=== PATIENT | female | born 1990 | race Hispanic/Latino ===

== ENCOUNTER 2018-03-02 16:32 | Inpatient (IN) | payer OTHER ==
[~2018-03-02] VITALS: Ht 152.4 cm; Wt 98.0 kg
[~2018-03-02 16:32] MED LIST: CRYSELLE 30 MCG1 TAB PO; LEVSIN0.125 MG PO; ZOFRAN ODT4 M1 PO; ZOFRAN4 MG PO
[2018-03-02 17:44] LABS: ABSOLUTE BASOPHIL COUNT 0 /CUMM (0.0-0.2); ABSOLUTE EOSINOPHIL COUNT 0 /CUMM (0.0-0.7); ABSOLUTE LYMPH COUNT 2.1 /CUMM (1.2-3.4); BASOPHIL % 0.3 % (0.0-2.0); EOSINOPHIL % 0.1 % (0-5); GRANULOCYTE % 74.3 % (42.2-75.2); HEMATOCRIT 37.1 % (37-47); MEAN CORPUSCULAR HGB 27.1 PG (27.0-31.0); MEAN CORPUSCULAR HGB CONC 33.7 G/DL (33.0-37.0); MEAN CORPUSCULAR VOLUME 80.4 FL (81.0-99.0); MEAN PLATELET VOLUME 10.1 FL (7.4-10.4); PLATELET COUNT 207 /CUMM (130-400); RBC DISTRIBUTION WIDTH 15.4 % (11.5-14.5); RED BLOOD CELL CT 4.61 /CUMM (4.20-5.40); WHITE BLOOD CELL COUNT 12.1 /CUMM (4.8-10.8)
--- NOTE | 2018-03-02 23:31 | Operative Report ---
Operative/Inv Procedure Report Surgery Date: 03/02/18 Name of Procedure: Primary section Pre-Operative Diagnosis: Nonreassuring heart rate testing Post-Operative Diagnosis: Same Estimated Blood Loss: 800 mL Surgeon/Pumping Station Supervisor: Morro Haley MD,Shalom Nicholas M.D. Anesthesia: epidural Operative/Procedure Note Note: The patient was taken to the operating room and placed on the OR table in the supine position. Her epidural anesthesia was reinforced and tested. The abdomen was prepped and draped in the usual sterile fashion. Venodyne boots were placed. A Dior catheter was previously placed and was draining clear urine. A Pfannenstiel skin incision was made with the scalpel and this was taken down to the layer of the fascia. The fascia was nicked in the midline and extended bilaterally. The underlying rectus muscles were and the peritoneal cavity was entered sharply. A bladder flap was created using Metzenbaum scissors. A Steven bladder blade was inserted to protect the bladder from the operation field. A low transverse uterine incision was made with the scalpel and the uterine cavity was entered. A liveborn female was delivered atraumatically and handed off to the awaiting epitaxial reactor operator. He was then manually removed intact with a three-vessel cord. The uterus was exteriorized and wiped clean with a wet lap sponge. The uterine incision was then closed in 2 layers of 0 Polysorb suture, the second one imbricating the first one. The abdomen and pelvis were copiously irrigated and the uterus was placed back into the abdominal cavity. The suture line was once again visualized and noted to be hemostatic. The rectus muscles were reapproximated with 2 sutures of 0 Polysorb. The fascia was then closed using 0 Maxon in a running nonlocking fashion. Subcutaneous tissues were irrigated and coagulated electric cautery where needed. Subcutaneous tissues were closed using 0 Polysorb in a running fashion. Skin was closed with fernando and a dry sterile dressing was applied to the wound. The patient was then transferred to recovery in good condition. All needle, sponge, and instrument counts were correct at the end of the procedure 4 counts.
[2018-03-03 08:45] LABS: ABSOLUTE EOSINOPHIL COUNT 0 /CUMM (0.0-0.7); ABSOLUTE MONOCYTE COUNT 0.9 /CUMM (0.10-0.60); EOSINOPHIL % 0.1 % (0-5); MEAN PLATELET VOLUME 10.3 FL (7.4-10.4)
[2018-03-03 08:54] LABS: ABSOLUTE BASOPHIL COUNT 0 /CUMM (0.0-0.2); ABSOLUTE GRANULOCYTE CT 8.8 /CUMM (1.4-6.5); BASOPHIL % 0.3 % (0.0-2.0); HEMATOCRIT 32.2 % (37-47); MEAN CORPUSCULAR HGB 27.5 PG (27.0-31.0); MEAN CORPUSCULAR HGB CONC 33.6 G/DL (33.0-37.0); MEAN CORPUSCULAR VOLUME 81.8 FL (81.0-99.0); PLATELET COUNT 172 /CUMM (130-400); RBC DISTRIBUTION WIDTH 15.7 % (11.5-14.5); RED BLOOD CELL CT 3.93 /CUMM (4.20-5.40); WHITE BLOOD CELL COUNT 11.7 /CUMM (4.8-10.8)
--- NOTE | 2018-03-03 12:00 | History & Physical Pre-Op ---
General Information and HPI History of Present Illness: This patient is a 27-year-old 1 para 0 EDC 424 2018 x 8 week ultrasound presents to labor and delivery complaining of rupture of membranes at 3:30 PM Sunday. Fluid was green tinged and confirmation of meconium with spontaneous rupture of membranes in labor and delivery. Care is complete and significant for gestational diabetes for which she has been co-managed and on metformin 500 mg daily. Hemoglobin A1c is 5.8. She has been in labor now for approximately 4 hours with occasional variable decelerations and one final episode of distress leading to primary . Allergies/Medications Allergies: Coded Allergies: NO KNOWN ALLERGIES (03/07/12) Home Med list Ethinyl Estradiol/Norgestrel (Cryselle 30 Mcg-0.3 MG) 1 TAB TAB 1 TAB PO DAILY BC (Reported) Hyoscyamine Sulfate (Levsin) 0.125 MG TAB 1-2 TAB PO Q6P PRN ABDOMINAL CRAMPS Ondansetron (Zofran Odt) 4 MG TAB.RAPDIS 1 TAB PO Q6 PRN NAUSEA Ondansetron Hydrochloride (Zofran) 4 MG TAB 1 TAB PO Q6P PRN NAUSEA/VOMITING Past History Medical History Neurological: NONE EENT: NONE Cardiovascular: NONE Respiratory: NONE Gastrointestinal: NONE Hepatic: NONE Renal: NONE Musculoskeletal: NONE Psychiatric: NONE Endocrine: NONE Blood Disorders: NONE Cancer(s): NONE JAVA TECH LEAD/Reproductive: NONE Surgical History Pertinent Surgical History: cholecystectomy Past Family/Social History Psychosocial History Smoking Status: Never Smoked Review of Systems Review of Systems Constitutional: Reports: no symptoms. EENTM: Reports: no symptoms. Cardiovascular: Reports: no symptoms. Respiratory: Reports: no symptoms. GI: Reports: no symptoms. Genitourinary: Reports: no symptoms. Musculoskeletal: Reports: no symptoms. Skin: Reports: no symptoms. Neurological/Psychological: Reports: no symptoms. Hematologic/Endocrine: Reports: no symptoms. Immunologic/Allergic: Reports: no symptoms. All Other Systems: Reviewed and Negative Exam & Diagnostic Data Last 24 Hrs of Vital Signs/I&O Intake & Output 03/03 1600 03/03 0800 03/03 0000 Intake Total Output Total Balance Patient 216 lb Weight Physical Exam: HEENT: Normocephalic atraumatic Chest: Clear to auscultation bilaterally Cardiovascular: Normal S1-S2 Abdomen: Gravid estimated weight 7-1/2 pounds Pelvic: 2 cm 50% effaced -2 Extremities: No clubbing cyanosis or edema neurologic: Nonfocal Last 24 Hrs of Labs/Martin: Laboratory Tests 03/03/18 0650: CBC w Diff NO MAN DIFF REQ, RBC 3.93 L, MCV 81.8, MCH 27.5, MCHC 33.6, RDW 15.7 H, MPV 10.3, Gran % 75.0, Lymphocytes % 17.0 L, Monocytes % 7.6, Eosinophils % 0.1, Basophils % 0.3, Absolute Granulocytes 8.8 H, Absolute Lymphocytes 2.0, Absolute Monocytes 0.9 H, Absolute Eosinophils 0, Absolute Basophils 0 03/02/182014: Urinalysis LIGHT H, Urine Color YEL, Urine Clarity CLEAR, Urine pH 6.0, Ur Specific [place] 1.025, Urine Protein TRACE H, Urine Ketones NEG, Urine Nitrite NEG, Urine Bilirubin NEG, Urine Urobilinogen 0.2, Ur Leukocyte Esterase NEG, Ur Microscopic SEDIMENT EXAMINED, Urine Hemoglobin NEG, Urine Glucose NEG 03/02/18 1845: Hemoglobin A1c 5.8 03/02/18 1730: CBC w Diff NO MAN DIFF REQ, RBC 4.61, MCV 80.4 L, MCH 27.1, MCHC 33.7, RDW 15.4 H, MPV 10.1, Gran % 74.3, Lymphocytes % 17.2 L, Monocytes % 8.1, Eosinophils % 0.1, Basophils % 0.3, Absolute Granulocytes 9.0 H, Absolute Lymphocytes 2.1, Absolute Monocytes 1.0 H, Absolute Eosinophils 0, Absolute Basophils 0 03/02/18 1645: Membrane Rupture POSITIVE Microbiology 03/02 2015 URINE ROUT: Urine Culture - RES Assessment/Plan Assessment/Plan: Spontaneous rupture of membranes with meconium at 38 weeks 4 days now with distress Plan: Primary section As Ranked By This Provider Problem List: 1.
--- NOTE | 2018-03-04 17:43 | PN- Obstetrical ---
Subjective Subjective: no c/o Review of Systems: neg Objective Last 24 Hrs of Vital Signs/I&O vss Physical Exam: incision c/d/i ext NT Obstetric Exam Dilation (cm): 0 Effacement (%): 0 Station: 0 Membranes: SROM Fluid: thick meconium Multiple Gestation? No Contractions: ne Assessment/Plan Assessment/Plan s/p c/s pod2 stable discharge tomorrow Problem List: 1.
--- NOTE | 2018-03-04 17:45 | PN- Post Delivery/GYN ---
Subjective Subjective: no c/o Review of Systems: neg Objective Last 24 Hrs of Vital Signs/I&O vss afebrile Physical Exam: incision c/d/i ext nt Assessment/Plan Assessment/Plan s/p c/.s pod2 stable discharge tomorrow
[2018-03-04] MEDS ORDERED: IBUPROFEN800 M1 PO (17:47)
[2018-03-04] MEDS ORDERED: DOCUSATE SODIU100 M3 PO (17:47)
[2018-03-04] MEDS ORDERED: PERCOCET 5-3251 EACH PO (17:47)
== END 2018-03-05 11:24 | DRG 540 ==
LOC: CBCO 16:32 → GNO 17:15
PROVIDERS: Obstetrics & Gynecology
PROC: 10D00Z1 Extraction of Products of Conception, Low, Open Approach (ICD-10-PCS; principal; 2018-03-02)
DX: O76 Abnormality in fetal heart rate and rhythm complicating labor and delivery (principal); O24.425 Gestational diabetes mellitus in childbirth, controlled by oral hypoglycemic drugs; O77.0 Labor and delivery complicated by meconium in amniotic fluid; Z3A.38 38 weeks gestation of pregnancy; Z37.0 Single live birth
CPT/HCPCS: GNOS; 81001; 84112; 87086; G0463; J0690; J1170; J1200; J1650; J1885; J3105; J7120